=== PATIENT | male | born 1970 | race Caucasian/White ===

== ENCOUNTER 2017-01-20 02:16 | Emergency (ER) | payer OTHER ==
--- NOTE | 2017-01-20 02:19 | PDOC ---
History of Present Illness - General Chief Complaint: Injury Stated Complaint: FELL HIT HEAD, LACERATION Time Seen by Provider: 01/20/17 02:18 - History of Present Illness Initial Comments: This mainly English-speaking 47-year-old man, otherwise healthy, presents with his with a history of head injury: Patient was in the [place] yesterday (Friday, 01/19) when he fell in the bathroom of the hotel room in which she was staying. Patient was stunned for several seconds but had no loss of consciousness. He sustained a large laceration of the left side of his scalp. Bleeding eventually stopped with direct pressure. No other complaints and no other obvious injury sustained. The patient did not want to pursue medical care in the [facility] and traveled back to the [place] as planned during the day today. He arrives directly from the airport. He states that he has 4/10 severity headache but denies nausea/vomiting/change in vision/difficulty in ambulation or balance. He has had no difficulty with speaking/facial droop/extremity weakness. No previous history of head injury. Interpretation was aided by Calm application Past History - Past Medical History Allergies/Adverse Reactions: Allergies Allergy/AdvReac Type Severity Reaction Status Date / Time No Known Allergies Allergy Verified 01/20/17 02:17 Home Medications: Ambulatory Orders Amox-Tr/K Cl [Augmentin - 875Mg Tablet] 1 tab PO BID #10 tablet 01/20/17 Suicide Attempt (Hx): Yes - Psycho/Social/Smoking Cessation Hx Anxiety: No Suicidal Ideation: No Smoking Status: No Smoking History: Unknown if ever smoked Number of Cigarettes Smoked Daily: 0 Drug/Substance Use Hx: No Substance Use Type: None Review of Systems - Review of Systems Able to Perform ROS?: Yes Comments:: 12 point review of systems is negative except for what is noted in the history of present illness *Physical Exam - Physical Exam Comments: GENERAL: Adult male, alert and oriented 3, fluent speech; in no acute distress HEAD: 3 cm horizontal, linear laceration of the left temporal parietal scalp, nonbleeding; moderate tenderness surrounding laceration No other lacerations/contusions/abrasions evident No Oro sign; no hemotympanum EYES: PERRLA, EOMI, sclera anicteric, conjunctiva clear. ENT: Ears normal, nares patent, oropharynx clear without exudates. Moist mucous membranes. NECK: Normal range of motion, supple without lymphadenopathy, JVD, or masses. LUNGS: Breath sounds equal, clear to auscultation bilaterally. No wheezes, and no crackles. HEART:Regular rate and rhythm, normal S1 and S2 without murmur, rub or gallop. ABDOMEN:.normal bowel sounds No guarding,tenderness or rebound.No masses No distention. EXTREMITIES: Normal range of motion, no edema. No clubbing or cyanosis. No erythema, or tenderness. NEUROLOGICAL: Cranial nerves II through XII grossly intact. Pupils 3 mm equal and reactive, motor 5/5, sensory functioning intact, Speech is fluent, gait is normal MUSCULOSKELETAL: Back non-tender to palpation, no CVA tenderness SKIN: Warm, Dry, normal turgor, no rashes noted. Progress Note - Progress Note Progress Note: This 47-year-old man with no significant past medical history presents with head injury/scalp laceration that occurred approximately 36 hours prior to presentation. The patient was in the [place] at the time of the injury and did not want to seek medical care at that time. Since then, bleeding from scalp laceration has stopped, although the patient has some pain around the laceration and headache. He has had no associated neurologic symptoms and his exam is normal. Because the laceration has been opened for greater than 12 hours, primary closure is not recommended. This was explained to the patient and his and they understand that there is an increased risk for infection if the wound is closed now. Under sterile technique, wound cleansed with normal saline. Small amount of residual bleeding controlled with direct pressure. Bacitracin ointment applied to the wound. Patient will be started on Augmentin 875/125 twice day for 5 days. He will follow-up with his general doctor within the next few days for wound check. Meanwhile, he can gently cleanse the area around the laceration and apply direct pressure if there is any bleeding. Bacitracin ointment should be applied to the wound at least once daily(preferably twice daily). *DC/Admit/Observation/Transfer Diagnosis at time of Disposition: Scalp laceration Qualifiers: Encounter type: initial encounter Qualified Code(s): S01.01XA - Laceration without foreign body of scalp, initial encounter Closed head injury Qualifiers: Encounter type: initial encounter Qualified Code(s): S09.90XA - Unspecified injury of head, initial encounter - Discharge Dispostion Disposition: HOME Condition at time of disposition: Stable - Prescriptions Prescriptions: Amox-Tr/K Cl [Augmentin - 875Mg Tablet] 1 tab PO BID #10 tablet - Patient Instructions Printed Discharge Instructions: DI for Closed Head Injury Additional Instructions: Can clean laceration gently Put direct pressure on wound if it bleeds Bacitracin/Neosporin ointment to wound twice daily Augmentin 875/125 twice a day for 5 days Tylenol as needed for pain Follow-up with your doctor within the next 2-3 days Return to ER if you have severe headache/vomiting/lightheadedness Print Language: [place]
[2017-01-20 02:27] VITALS: BP 129/89; PULSE 66; TEMP 98; BMI 26.3
[2017-01-20] MEDS ORDERED: DIPHTH,PERTUSS(ACELL),TET 0.5 ML DISP.SYRIN IM ONE (02:40)
[2017-01-20] MEDS ORDERED: AMOX TR/POT CLAV 875MG/125MG TABLETS (FP) PO ONE (02:50)
[2017-01-20] MEDS ORDERED: AMOX TR/POT CLAV 875MG/125MG TABLETS (FP) ONE (02:50)
== END 2017-01-20 03:16 | disposition home or self-care (01) ==
LOC: FER 02:16
PROC: 3E0234Z Introduction of Serum, Toxoid and Vaccine into Muscle, Percutaneous Approach (ICD-10-PCS; principal; 2017-01-20)
DX: S01.01XA Laceration without foreign body of scalp, initial encounter (principal); S09.90XA Unspecified injury of head, initial encounter; W18.39XA Other fall on same level, initial encounter; Y93.89 Activity, other specified; Y92.59 Other trade areas as the place of occurrence of the external cause
CPT/HCPCS: 90715; 99281-25